=== PATIENT | male | born 1980 | race Caucasian/White ===

== ENCOUNTER 2016-12-14 11:06 | Emergency (ER) | payer BC ==
[2016-12-14 11:22] VITALS: TEMP 97.5
--- NOTE | 2016-12-14 12:30 | RAD ---
PROCEDURE: Lumbar Spine 3 Views Clinical History: low back pain on left, sciatica Indication: Same as above Comparison: None . Technique: 3.0 views of the lumbar spine were done. Findings: There is no loss of vertebral body height. There is no evidence of spondylolisthesis in the lumbosacral spine. Moderate size anterolateral osteophyte formation is seen in the evaluated lower thoracic spine and at L1 vertebral body level. There is reduction in the intervertebral disc space heights at T11/T12 and T12/L1 levels. These findings are suggestive of underlying degenerative changes in the evaluated lower thoracic and the lumbar spine There is no significant scoliotic curvature of the lumbar spine. The bone mineralization is normal for patient's age. The thoracolumbar and the lumbosacral junction are intact. The visualized portions of the bilateral sacroiliac joints are unremarkable. The paravertebral soft tissues are radiographically unremarkable. The posterior elements are normal. There is no visualization of any radiopaque foreign bodies in the soft tissues. Impression: Moderate size anterolateral osteophyte formation is seen in the evaluated lower thoracic spine and at L1 vertebral body level. There is reduction in the intervertebral disc space heights at T11/T12 and T12/L1 levels. These findings are suggestive of underlying degenerative changes in the evaluated lower thoracic and the lumbar spine Location of Interpretation: Teleradiology Electronically signed by: Tj Evans MD 12/14/2016 12:28 PM CDT
--- NOTE | 2016-12-14 12:30 | ED.PDOC ---
History of Present Illness - General Chief Complaint: Back Pain or Injury Stated Complaint: back pain Time Seen by Provider: 12/14/16 11:07 Source: patient Exam Limitations: no limitations - History of Present Illness Initial Comments: the patient is a 36-year-old male presenting to the emergency room secondary to left low back pain with some radiation of the pain down the posterior aspect of his leg. No numbness. No weakness. The pain is primarily localized to the left of the spine adjacent to L4-S1. There is no obvious visible trauma. There is tenderness to palpation in that area. Pelvis is stable. Range of motion of the hip knee and ankle on the left are within normal limits. The patient apparently slipped on a wet surface at [facility] 2 days ago. The pain has progressively gotten a little worse. 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 Severity: moderate Improving Factors: nothing Worsening Factors: other - sitting Associated Symptoms: denies symptoms Allergies/Adverse Reactions: Allergies Codeine Allergy (Verified 12/14/16 11:58) Home Medications: Ambulatory Orders Cyclobenzaprine HCl [Flexeril] 5 mg PO TID PRN #30 tab 12/14/16 predniSONE [Prednisone] 20 mg PO DAILY #5 tab 12/14/16 Review of Systems - Review of Systems Constitutional: States: no symptoms reported EENTM: States: no symptoms reported Respiratory: States: no symptoms reported Cardiology: States: no symptoms reported Gastrointestinal/Abdominal: States: no symptoms reported Genitourinary: States: no symptoms reported Musculoskeletal: States: see HPI Skin: States: no symptoms reported Neurological: States: see HPI Endocrine: States: no symptoms reported All other Systems: No Change from Baseline Past Medical History (General) - Patient Medical History Hx Asthma: No Hx of COPD: No Hx Congestive Heart Failure: No Hx Hypertension: Yes Hx Gastroesophageal Reflux: Yes Surgical History: tonsillectomy Family Medical History - Family History Father Family History: Unknown Physical Exam - Physical Exam General Appearance: Alert, Comfortable, No apparent distress Eye Exam: bilateral normal Ears, Nose, Throat: hearing grossly normal Neck: full range of motion, supple Respiratory: no respiratory distress, no accessory muscle use Cardiovascular/Chest: normal peripheral pulses, no edema Peripheral Pulses: radial,right: 2+, radial,left: 2+, dorsalis pedis,right: 2+, dorsalis pedis,left: 2+ Gastrointestinal/Abdominal: other - obese Rectal Exam: deferred Back Exam: no vertebral tenderness, other - see history of present illness Extremity: normal range of motion, non-tender, normal inspection, no pedal edema , no calf tenderness, normal capillary refill Neurologic: technical aid II-XII nml as tested, no motor/sensory deficits, alert, normal mood/affect, oriented x 3 Skin Exam: normal color Comments: Vital Signs - 24 hr 12/14/16 12/14/16 11:14 12:10 Temperature 97.5 F L Pulse Rate [ 76 76 Left Brachial] Respiratory 20 20 Rate Blood Pressure 147/92 147/92 [left brachial] O2 Sat by Pulse 97 96 Oximetry Progress - Progress Progress: 12/14/16 12:30 the patient is a 36-year-old male presenting to the emergency room secondary to left low back pain with mild sciatica since a fall 2 days ago. I see no evidence of significant subluxation or fracture on the x-ray of the lumbar spine. The patient will be placed on 5 days of oral prednisone and will also be placed on Flexeril as a muscle relaxer. He can take Aleve twice daily for the next 3 or 4 days with food. A heat pad to the area may also help. He can also see a chiropractor tomorrow to see if they can help provide some relief. Topical icy hot or Biofreeze may also help. ER warnings were given. Departure - Departure Clinical Impression: Low back pain with sciatica Qualifiers: Back pain laterality: left Sciatica laterality: sciatica of left side Qualified Code(s): M54.42 - Lumbago with sciatica, left side Disposition: Discharge to Home or Self Care Condition: Fair Departure Forms: ED Discharge - Pt. Copy, Patient Portal Self Enrollment Diet: regular diet Activity: increase activity as tolerated Prescriptions: Cyclobenzaprine HCl [Flexeril] 5 mg PO TID PRN #30 tab PRN Reason: Muscle Spasms predniSONE [Prednisone] 20 mg PO DAILY #5 tab Home Medications: Ambulatory Orders Cyclobenzaprine HCl [Flexeril] 5 mg PO TID PRN #30 tab 12/14/16 predniSONE [Prednisone] 20 mg PO DAILY #5 tab 12/14/16 Additional Instructions: the patient is a 36-year-old male presenting to the emergency room secondary to left low back pain with mild sciatica since a fall 2 days ago. I see no evidence of significant subluxation or fracture on the x-ray of the lumbar spine. The patient will be placed on 5 days of oral prednisone and will also be placed on Flexeril as a muscle relaxer. He can take Aleve twice daily for the next 3 or 4 days with food. A heat pad to the area may also help. He can also see a chiropractor tomorrow to see if they can help provide some relief. Topical icy hot or Biofreeze may also help. ER warnings were given.
[2016-12-14] MEDS ORDERED: KETOROLAC TROMETHAMINE INJ 30 MG/ML VIAL IM ONE (12:32)
[2016-12-14 13:09] VITALS: BP 127/78; O2SAT 97
== END 2016-12-14 13:07 | disposition home or self-care (01) ==
LOC: ER 11:06
DX: M54.42 Lumbago with sciatica, left side (principal); I10 Essential (primary) hypertension; K21.9 Gastro-esophageal reflux disease without esophagitis; Z88.6 Allergy status to analgesic agent
CPT/HCPCS: 72100; J1885

== ENCOUNTER → 2017-09-21 | Outpatient (CLI) | payer BC ==
--- NOTE | 2017-09-21 15:29 | RAD ---
Left hand 3 views INDICATION: Hand pain IMPRESSION: No fracture or focal destructive process. No evidence of active erosion. There are several small cysts in the third and fourth metacarpal heads which are common in this location. No acute osseous abnormality. Electronically signed by: Gopal Alejandre MD 09/21/2017 3:28 PM [facility]
--- NOTE | 2017-09-21 15:33 | RAD ---
Right hand 3 views INDICATION: Hand pain IMPRESSION: No fracture dislocation or focal destructive process. Mild ulna minus variance at the wrist. Multifocal mild cystic change in the metacarpal heads with evidence of active erosion. Electronically signed by: Gopal Alejandre MD 09/21/2017 3:32 PM [employer]
== END ==
LOC: RAD 08:21
PROVIDERS: ATTEND Orthopaedic Surgery
DX: M79.641 Pain in right hand (principal); M79.642 Pain in left hand

== ENCOUNTER → 2017-10-08 | Outpatient (CLI) | payer BC | LOC: LAB.O 09:02 | PROVIDERS: ATTEND Orthopaedic Surgery | DX: Z01.818 Encounter for other preprocedural examination (principal) ==

== ENCOUNTER 2017-10-14 06:05 | Day surgery (SDC) | payer BC ==
[~2017-10-14 06:05] MED LIST: LACTATED RINGERS 1,000 ML ONE; SODIUM CHL 0.9% 100ML MINI-BAG 100 ML IVPB ONE; ceFAZolin SODIUM 1 GM VIAL ONE
[2017-10-14] MEDS ORDERED: PROPOFOL 200 MG/20 ML VIAL IV ONE (06:06)
[2017-10-14] MEDS ORDERED: LIDOCAINE 1% 10 ML VIAL INJ ONE ×2 (06:06→06:29)
[2017-10-14] MEDS ORDERED: BUPIVACAINE 0.25% INJ 30 ML VIAL INJ ONE (06:29)
[2017-10-14] MEDS ORDERED: LIDOCAINE 1% 50 ML VIAL INJ ONE (06:30)
[2017-10-14] MEDS ORDERED: MIDAZOLAM INJ 2 MG/2 ML VIAL ONE (06:58)
[2017-10-14] MEDS ORDERED: fentaNYL CITRATE INJ 50 MCG/ML AMP ONE (06:58)
[2017-10-14] MEDS: VANCOMYCIN HCL INJ 1,000 MG VIAL IVPB ONE ×2 (07:31→07:38)
[2017-10-14] MEDS: ceFAZolin SODIUM 1 GM VIAL ONE ×2 (07:31→07:38)
[2017-10-14] MEDS ORDERED: LACTATED RINGERS 1,000 ML IVS ONE (07:45)
--- NOTE | 2017-10-14 08:43 | OP ---
DATE OF PROCEDURE: 10/14/17 PREOPERATIVE DIAGNOSIS: 1. Right carpal tunnel syndrome. POSTOPERATIVE DIAGNOSIS: 1. Right carpal tunnel syndrome. PROCEDURE: 1. Right carpal tunnel release. SURGEON: Dmitriy Alcantar MD. PERINATAL NURSE: Ziyad Joy CST, SA-C. ANESTHESIA: Local with sedation. COMPLICATIONS: None. FINDINGS: Very Thickened transverse carpal ligament. INDICATION: Mr. Bertrand has a long history of pain with associated numbness in the wrist and digits. He has failed conservative measures and EMG indicated the presence of carpal tunnel syndrome. Because of his severe symptoms and the failure of conservative measures, the patient has requested operative intervention. After discussing the risks, benefits and alternatives to that, the patient has given informed consent for carpal tunnel release. PROCEDURE: The patient was brought to the Operating Room and placed in the supine position. Sedation was administered and local anesthetic was injected into the operative area under sterile conditions. After the injection of anesthetic, the arm was sterilely prepped and draped. A longitudinal incision was made directly overlying the transverse carpal ligament and blunt dissection was carried down to the ligament. The transverse carpal ligament was sharply transected along its length and a [place] elevator was used to ensure complete release of the ligament. Once release had been confirmed, the wound was thoroughly irrigated and the wound was closed with Nylon suture. A sterile dressing was placed and the patient was taken to the Day Surgery Unit. POSTOPERATIVE INSTRUCTIONS: The patient has been encouraged to do range of motion of the digits and will followup with us tomorrow in the clinic. #[id number] [facility]
[2017-10-14 10:58] VITALS: TEMP 98.3
[2017-10-14 10:59] VITALS: BP 137/80; O2SAT 99
== END 2017-10-14 08:45 | disposition home or self-care (01) ==
LOC: AMB 06:05
PROVIDERS: ATTEND Orthopaedic Surgery
DX: G56.01 Carpal tunnel syndrome, right upper limb (principal); I10 Essential (primary) hypertension; E66.01 Morbid (severe) obesity due to excess calories; Z87.891 Personal history of nicotine dependence; G47.30 Sleep apnea, unspecified; Z88.8 Allergy status to other drugs, medicaments and biological substances
CPT/HCPCS: 01810; 64721; 87070; J0690; J2250; J3010; J3370; J3490; J7050; J7120

== ENCOUNTER 2018-04-09 06:00 | Day surgery (SDC) | payer BC ==
--- NOTE | 2018-04-08 09:15 | HP ---
CHIEF COMPLAINT: Right hand pain and numbness. HISTORY OF PRESENT ILLNESS: Avel is a 36-year-old male with a history of pain and numbness in the right hand. He says predominantly the radial three digits, but occasionally does get it in the fourth and fifth digit. He has had no trauma related to this and has had an EMG indicating carpal tunnel syndrome. He denies any radiation of pain, denies any neurologic symptoms. PAST SURGICAL HISTORY: 1. Carpal tunnel release on the left. MEDICATIONS: None. ALLERGIES: NO KNOWN DRUG ALLERGIES. CODE STATUS: Unknown. IMMUNIZATIONS: Up to date. FAMILY HISTORY: None pertinent to today's complaint. SOCIAL HISTORY: The patient does not drink, smoke or use any illicit drugs. REVIEW OF SYSTEMS: Negative except as indicated in the History of Present Illness. PHYSICAL EXAMINATION: VITAL SIGNS: Blood pressure 128/87. Pulse 77. Height 6'. Weight 300. MENTAL STATUS: The patient is awake, alert, and is able to give a good history and participate in the physical. The patient is oriented to person, place and time. SKIN: Normal tone and turgor. MUSCULOSKELETAL: He has a positive Tinel's, positive carpal compression test on the right. He has no significant thenar atrophy on the right. He has full range of motion in the digits and the wrist. There is no deformity. He has full abduction strength. He has positive Tinel's over the elbow. ASSESSMENT: 1. Carpal tunnel syndrome. PLAN: The plan at this point is for carpal tunnel release. We have discussed the risks, benefits, and alternatives to that and the patient has given informed consent. #[id number] [facility]
[2018-04-09] MEDS ORDERED: BUPIVACAINE 0.25% INJ 30 ML VIAL INJ ONE (06:26)
[2018-04-09] MEDS ORDERED: LIDOCAINE 1% 10 ML VIAL INJ ONE ×2 (06:26→07:00)
[2018-04-09] MEDS ORDERED: MIDAZOLAM INJ 2 MG/2 ML VIAL ONE (06:58)
[2018-04-09] MEDS ORDERED: fentaNYL CITRATE INJ 50 MCG/ML AMP ONE (06:59)
[2018-04-09] MEDS ORDERED: PROPOFOL 200 MG/20 ML VIAL IV ONE (07:00)
[2018-04-09 07:03] VITALS: TEMP 96.9; O2SAT 98
[2018-04-09] MEDS: VANCOMYCIN HCL INJ 1,000 MG VIAL IVPB ONE ×2 (07:27→07:31)
[2018-04-09] MEDS: ceFAZolin SODIUM 1 GM VIAL ONE ×2 (07:27→07:31)
[2018-04-09] MEDS ORDERED: HYDROcodone 5MG/APAP 325MG 1 EA TAB ONE (07:55)
[2018-04-09 08:12] VITALS: BP 114/63
--- NOTE | 2018-04-21 23:17 | OP ---
DATE OF PROCEDURE: PREOPERATIVE DIAGNOSIS: 1. Carpal tunnel syndrome. POSTOPERATIVE DIAGNOSIS: 1. Carpal tunnel syndrome. PROCEDURE: 1. Carpal tunnel release. SURGEON: Dmitriy Alcantar M.D. AUTOMATION TESTER: Ziyad Joy CST, SA-C. ANESTHESIA: Local with sedation. COMPLICATIONS: None. FINDINGS: Thickening of the transverse carpal ligament and narrowing of the median nerve across the carpal tunnel. INDICATION FOR PROCEDURE: Casimiro has a history of having numbness in the digits on both sides. Casimiro had contralateral carpal tunnel release with success. He has requested operative intervention after failure of conservative measures. After discussing the risks, benefits, and alternatives to that, he has given informed consent for that. DESCRIPTION OF PROCEDURE: The patient was brought to the Operating Room and placed in supine position. Sedation was administered and local anesthetic was injected into the operative area. The arm was sterilely prepped and draped. Following prepping and draping, longitudinal incision measuring approximately 3 cm was made directly overlying the transverse carpal ligament. Blunt dissection was used to identify the transverse carpal ligament, which was sharply incised in a longitudinal fashion. [place] elevator was passed both proximally and distally to ensure complete release of the transverse carpal ligament. Once complete release had been confirmed, the wound was very thoroughly irrigated and closed with Nylon suture. Sterile dressing was placed. A splint was placed and the patient was then taken to the Day Surgery Unit. POSTOPERATIVE INSTRUCTIONS: He will be doing range of motion of the digits and he will followup with us in 2 days. #[id number] [facility]
== END 2018-04-09 08:45 | disposition home or self-care (01) ==
LOC: AMB 06:00
PROVIDERS: ATTEND Orthopaedic Surgery
DX: G56.01 Carpal tunnel syndrome, right upper limb (principal); I10 Essential (primary) hypertension; E11.9 Type 2 diabetes mellitus without complications; K21.9 Gastro-esophageal reflux disease without esophagitis; E66.9 Obesity, unspecified; Z87.891 Personal history of nicotine dependence; Z88.5 Allergy status to narcotic agent; Z79.84 Long term (current) use of oral hypoglycemic drugs; Z79.899 Other long term (current) drug therapy
CPT/HCPCS: 01810; 36416; 64721; 82948; 87070; J0690; J2250; J3010; J3370; J3490; J7050; J7120

== ENCOUNTER 2018-04-19 10:51 | Emergency (ER) | payer BC ==
[2018-04-19 11:29] VITALS: TEMP 98.6; O2SAT 96
--- NOTE | 2018-04-19 11:35 | ED.PDOC ---
History of Present Illness - General Chief Complaint: Wound Recheck Stated Complaint: drainage operative wound with dehiscence Time Seen by Provider: 04/19/18 11:35 Source: patient Exam Limitations: no limitations - History of Present Illness Initial Comments: Casimiro Bertrand 37 y/o male came to er for suture removal and had Right hand carpal tunnel surgery 09 April 2018 then after suture removal done noted drainage onthe wound and dehiscence.Wound culture taken on drainage.No fever/ chills Timing/Duration: just prior to arrival Severity: mild Location: hands - right Improving Factors: nothing Worsening Factors: nothing Associated Symptoms: other - see hpi Allergies/Adverse Reactions: Allergies Codeine Allergy (Verified 12/14/16 11:58) Home Medications: Ambulatory Orders Cetirizine HCl [ZyrTEC] 10 mg PO DAILY 04/09/18 Esomeprazole Magnesium [Nexium] 20 mg PO DAILY 04/09/18 Lisinopril [Lisinopril] 20 mg PO BEDTIME 04/09/18 Metformin HCl [Metformin HCl] 500 mg PO BID 04/09/18 Multiple Vitamins W/ Minerals [Mens Daily Formula/Lycope] 1 cap PO DAILY Paroxetine HCl [Paroxetine HCl] 20 mg PO DAILY 04/09/18 Zolpidem Tartrate [Zolpidem Tartrate ER] 12.5 mg PO JESU-OTH-DAY 04/09/18 Zolpidem Tartrate [Zolpidem Tartrate] 10 mg PO JESU-OTH-DAY 04/09/18 RX: Clindamycin HCl 300 mg PO BID 10 Days #20 cap 04/19/18 Review of Systems - Review of Systems Constitutional: States: no symptoms reported EENTM: States: no symptoms reported Respiratory: States: no symptoms reported Cardiology: States: no symptoms reported Gastrointestinal/Abdominal: States: no symptoms reported Genitourinary: States: no symptoms reported Skin: States: see HPI Past Medical History (General) - Patient Medical History Hx Stroke: No Hx Asthma: No Hx of COPD: No Hx Cardiac Disorders: No Hx Congestive Heart Failure: No Hx Hypertension: Yes Hx Diabetes: Yes - FSBS 177 Hx Gastroesophageal Reflux: Yes Hx MRSA: No Surgical History: other - carpal tunnel surgery - Vaccination History Hx Tetanus, Diphtheria Vaccination: No Hx Influenza Vaccination: No Hx Pneumococcal Vaccination: No Immunizations Up to Date: No - Social History Hx Tobacco Use: No Hx Chewing Tobacco Use: No Hx Alcohol Use: No Hx Substance Use: No Hx Substance Use Treatment: No Hx Depression: No Feels Threatened In Home Enviroment: No Feels Threatened In a Relationship: No Hx Physical Abuse: No Hx Emotional Abuse: No Hx Suspected Abuse: No - Female History Patient is a Female of Child Bearing Age (10 -59 yrs old): No Patient : No Family Medical History - Family History Father Family History: Unknown Hx Family Diabetes: Yes Physical Exam - Physical Exam General Appearance: Alert, Comfortable, No apparent distress Eyes, Ears, Nose, Throat Exam: normal ENT inspection Neck: non-tender, supple Cardiovascular/Chest: normal peripheral pulses, regular rate, rhythm, no murmur Respiratory: lungs clear, normal breath sounds Gastrointestinal/Abdominal: non tender, soft Back Exam: normal inspection Extremity: no pedal edema, no calf tenderness Neurologic: no motor/sensory deficits, alert, oriented x 3 Skin Exam: warm/dry, normal color Skin Problem Location: other - right hand Skin Character: other - drainage and dehiscence of post op wound Lymphatic: no adenopathy Progress - Progress Progress: 04/19/18 11:56 Vital Signs - 8 hr 04/19/18 10:54 Temperature 98.6 F Pulse Rate [ 75 Apical] Respiratory 18 Rate Blood Pressure 137/82 [left armq] O2 Sat by Pulse 96 Oximetry Wound culture taken then cleanse area with betadine applied benzoin then steri strip closure done - EKG/XRAY/CT CT Ordered: No CT Interpretation Call Back: No Departure - Departure Clinical Impression: Status post carpal tunnel release Post op infection Qualifiers: Encounter type: initial encounter Qualified Code(s): T81.4XXA - Infection following a procedure, initial encounter Dehiscence of closure of skin Qualifiers: Encounter type: initial encounter Qualified Code(s): T81.31XA - Disruption of external operation (surgical) wound, not elsewhere classified, initial encounter Time of Disposition: 11:59 Disposition: Discharge to Home or Self Care Departure Forms: ED Discharge - Pt. Copy, Patient Portal Self Enrollment Instructions: DI for Wound Infection, DI for Wound Dehiscence Prescriptions: RX: Clindamycin HCl 300 mg PO BID 10 Days #20 cap Home Medications: Ambulatory Orders Cetirizine HCl [ZyrTEC] 10 mg PO DAILY 04/09/18 Esomeprazole Magnesium [Nexium] 20 mg PO DAILY 04/09/18 Lisinopril [Lisinopril] 20 mg PO BEDTIME 04/09/18 Metformin HCl [Metformin HCl] 500 mg PO BID 04/09/18 Multiple Vitamins W/ Minerals [Mens Daily Formula/Lycope] 1 cap PO DAILY Paroxetine HCl [Paroxetine HCl] 20 mg PO DAILY 04/09/18 Zolpidem Tartrate [Zolpidem Tartrate ER] 12.5 mg PO JESU-OTH-DAY 04/09/18 Zolpidem Tartrate [Zolpidem Tartrate] 10 mg PO JESU-OTH-DAY 04/09/18 RX: Clindamycin HCl 300 mg PO BID 10 Days #20 cap 04/19/18 Additional Instructions: call up Dr. Reagan office in am 2017
[2018-04-19 12:13] VITALS: BP 122/72
== END 2018-04-19 12:13 | disposition home or self-care (01) ==
LOC: ER 10:51
DX: T81.31XA Disruption of external operation (surgical) wound, not elsewhere classified, initial encounter (principal); T81.4XXA Infection following a procedure, initial encounter; L08.9 Local infection of the skin and subcutaneous tissue, unspecified; K21.9 Gastro-esophageal reflux disease without esophagitis; E11.9 Type 2 diabetes mellitus without complications; I10 Essential (primary) hypertension; Z79.84 Long term (current) use of oral hypoglycemic drugs; Z79.899 Other long term (current) drug therapy; Y84.8 Other medical procedures as the cause of abnormal reaction of the patient, or of later complication, without mention of misadventure at the time of the procedure

== ENCOUNTER 2019-08-16 15:21 | Emergency (ER) | payer BC, OTHER ==
[2019-08-16 15:48] VITALS: BP 147/96; TEMP 97; O2SAT 97
--- NOTE | 2019-08-16 15:50 | ED.PDOC ---
History of Present Illness - General Chief Complaint: Upper Extremity Injury Stated Complaint: right wrist pain Time Seen by Provider: 08/16/19 15:39 Source: patient Exam Limitations: no limitations - History of Present Illness Initial Comments: 38 M +pmh DM presents from work to ED c/o right wrist/forearm pain. Pt informs he was working on heavy objects and when moderately straining he felt a pain in his right lower forearm above the wrist and now has discomfort with extension of his arm described as a burning sensation. He endorses associated tingling in his 4-5th fingers but denies weakness/numbness. No h/o similar sx's. He is otherwise healthy with no other signs, symptoms, or complaints. Allergies/Adverse Reactions: Allergies Codeine Allergy (Verified 12/14/16 11:58) Home Medications: Ambulatory Orders Cetirizine HCl [ZyrTEC] 10 mg PO DAILY 04/09/18 Esomeprazole Magnesium [Nexium] 20 mg PO DAILY 04/09/18 Lisinopril 20 mg PO BEDTIME 04/09/18 Metformin HCl 500 mg PO BID 04/09/18 Multiple Vitamins W/ Minerals [Mens Daily Formula/Lycope] 1 cap PO DAILY 04/09/18 Paroxetine HCl 20 mg PO DAILY 04/09/18 Zolpidem Tartrate 10 mg PO JESU-OTH-DAY 04/09/18 Zolpidem Tartrate [Zolpidem Tartrate ER] 12.5 mg PO JESU-OTH-DAY 04/09/18 Clindamycin HCl 300 mg PO BID 10 Days #20 cap 04/19/18 Review of Systems - Review of Systems Musculoskeletal: States: muscle pain. Denies: back pain, joint pain, muscle stiffness Skin: Denies: change in color, rash Neurological: States: tingling. Denies: numbness Past Medical History (General) - Patient Medical History Hx Stroke: No Hx Asthma: No Hx of COPD: No Hx Cardiac Disorders: No Hx Congestive Heart Failure: No Hx Hypertension: Yes Hx Diabetes: Yes Hx Gastroesophageal Reflux: Yes Hx MRSA: No Surgical History: tonsillectomy - Vaccination History Hx Tetanus, Diphtheria Vaccination: No Hx Influenza Vaccination: Yes Hx Pneumococcal Vaccination: No - Social History Hx Tobacco Use: Yes Hx Chewing Tobacco Use: No Hx Alcohol Use: No Hx Substance Use: No Hx Substance Use Treatment: No Hx Depression: No Hx Physical Abuse: No Hx Emotional Abuse: No Hx Suspected Abuse: No - Female History Patient : No Family Medical History - Family History Father Family History: Unknown Hx Family Diabetes: Yes Physical Exam - Physical Exam General Appearance: Alert, Comfortable, No apparent distress Eyes, Ears, Nose, Throat Exam: other - PERRLA Cardiovascular/Respiratory: regular rate, rhythm, normal breath sounds, no respiratory distress Elbow/Forearm Exam: no evidence of injury - no external evidence of trauma, normal ROM, soft tissue tenderness - without ecchymosis, no deformity Wrist Exam: normal inspection, non-tender, no evidence of injury, normal ROM Hand Exam: normal inspection, non-tender, no evidence of injury, normal ROM - negative tinel sign, negative phalens test, strength/motor/sensation completely intact, compartments soft, no ecchymosis, no abrasions/lacerations Departure - Departure Clinical Impression: Strain of forearm, right Time of Disposition: 15:49 Disposition: Discharge to Home or Self Care Condition: Excellent Departure Forms: ED Discharge - Pt. Copy, Patient Portal Self Enrollment Instructions: DI for Forearm Muscle Strain, DI for Arm Pain Diet: resume usual diet Referrals: Henry Quach MD [Primary Care Provider] - 1-2 Weeks Home Medications: Ambulatory Orders Cetirizine HCl [ZyrTEC] 10 mg PO DAILY 04/09/18 Esomeprazole Magnesium [Nexium] 20 mg PO DAILY 04/09/18 Lisinopril 20 mg PO BEDTIME 04/09/18 Metformin HCl 500 mg PO BID 04/09/18 Multiple Vitamins W/ Minerals [Mens Daily Formula/Lycope] 1 cap PO DAILY 04/09/18 Paroxetine HCl 20 mg PO DAILY 04/09/18 Zolpidem Tartrate 10 mg PO JESU-OTH-DAY 04/09/18 Zolpidem Tartrate [Zolpidem Tartrate ER] 12.5 mg PO JESU-OTH-DAY 04/09/18 Clindamycin HCl 300 mg PO BID 10 Days #20 cap 04/19/18
== END 2019-08-16 16:17 | disposition home or self-care (01) ==
LOC: ER 15:21
DX: S56.911A Strain of unspecified muscles, fascia and tendons at forearm level, right arm, initial encounter (principal); E11.9 Type 2 diabetes mellitus without complications; K21.9 Gastro-esophageal reflux disease without esophagitis; I10 Essential (primary) hypertension; X50.9XXA Other and unspecified overexertion or strenuous movements or postures, initial encounter; Y99.0 Civilian activity done for income or pay; Y92.69 Other specified industrial and construction area as the place of occurrence of the external cause; Z88.5 Allergy status to narcotic agent; Z79.899 Other long term (current) drug therapy; Z79.84 Long term (current) use of oral hypoglycemic drugs; Z87.891 Personal history of nicotine dependence

== ENCOUNTER 2019-09-21 19:09 | Emergency (ER) | payer OTHER, BC ==
[2019-09-21] MEDS ORDERED: MECLIZINE HCL 12.5 MG TAB PO ONE (19:31)
[2019-09-21 19:35] VITALS: TEMP 97.8
--- NOTE | 2019-09-21 19:35 | ED.PDOC ---
History of Present Illness - General Time Seen by Provider: 09/21/19 19:29 Additional Information: Patient is a 38-year-old male who presents to the ED with chief complaint of dizziness. Patient indicates his dizziness began 2 weeks ago and has been constant, not getting any worse but not improving. Patient indicates he has never had similar symptoms before. He has a mild frontal headache and complains of sinus and nasal congestion. Patient denies difficulty walking. He further denies chest pain, shortness of breath, abdominal pain, nausea, vomiting, fever. Patient has diabetes but is otherwise healthy. - History of Present Illness Allergies/Adverse Reactions: Allergies Codeine Allergy (Verified 12/14/16 11:58) Home Medications: Ambulatory Orders Lisinopril 30 mg PO BEDTIME 04/09/18 Metformin HCl 1,000 mg PO BID 04/09/18 Atorvastatin Calcium [Lipitor] 20 mg PO BEDTIME 08/16/19 Venlafaxine HCl [Effexor Xr] 75 mg PO BID 08/16/19 Meclizine HCl [Antivert] 25 mg PO Q6H PRN #40 tab 09/21/19 Review of Systems - Review of Systems Constitutional: States: no symptoms reported. Denies: chills, fever EENTM: States: see HPI Respiratory: States: no symptoms reported. Denies: cough, short of breath Cardiology: States: no symptoms reported. Denies: chest pain, edema, palpitations, syncope Gastrointestinal/Abdominal: States: no symptoms reported. Denies: abdominal pain, diarrhea, nausea, vomiting Genitourinary: States: no symptoms reported. Denies: dysuria Musculoskeletal: States: no symptoms reported. Denies: muscle pain Skin: States: no symptoms reported. Denies: rash Neurological: States: see HPI. Denies: anxiety, paresthesia, weakness Endocrine: States: no symptoms reported All other Systems: Reviewed and Negative Past Medical History (General) - Patient Medical History Hx Stroke: No Hx Asthma: No Hx of COPD: No Hx Cardiac Disorders: No Hx Congestive Heart Failure: No Hx Hypertension: Yes Hx Diabetes: Yes Hx Gastroesophageal Reflux: Yes Hx MRSA: No - Vaccination History Hx Tetanus, Diphtheria Vaccination: No Hx Influenza Vaccination: Yes Hx Pneumococcal Vaccination: No - Social History Hx Tobacco Use: Yes Hx Chewing Tobacco Use: No Hx Alcohol Use: No Hx Substance Use: No Hx Substance Use Treatment: No Hx Depression: No Hx Physical Abuse: No Hx Emotional Abuse: No Hx Suspected Abuse: No - Female History Patient : No Family Medical History - Family History Father Family History: Unknown Hx Family Diabetes: Yes Physical Exam - Physical Exam General Appearance: Alert, Comfortable, No apparent distress, Well Developed, Well Nourished ENT Exam: normal ENT inspection, pharynx normal, nasal congestion Neck: non-tender, full range of motion, supple, normal inspection Respiratory: chest non-tender, lungs clear, normal breath sounds, no respiratory distress, no accessory muscle use Cardiovascular/Chest: normal peripheral pulses, regular rate, rhythm, no edema, no gallop, no JVD, no murmur Gastrointestinal/Abdominal: normal bowel sounds, non tender, soft Back Exam: normal inspection, no CVA tenderness 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 09/21/19 20:22 Patient seen and reassessed. Patient indicates he is feeling slightly better at this time following Antivert. Patient's labs are unremarkable with the exception of glucose of 181, but patient has diabetes. Patient's exam is unremarkable, he has a normal gait, and his CT head is negative. Clinically I suspect viral source of patient's dizziness given his sinus and nasal congestion. Will DC with Antivert and patient to rest and follow-up with his PCP within the week. He is to return to ED if symptoms worsen. Vital signs stable, patient is NAD and looks clinically well and I believe is safe for discharge with outpatient follow-up. Follow-up instructions, discharge instructions and return to ED precautions discussed with patient. Patient voices understanding and willingness to comply with instructions. All laboratory and radiographic results have been discussed with the patient, and all questions answered. Patient is happy with plan. - Results/Orders Results/Orders: Laboratory Results - last 24 hr 09/21/19 09/21/19 09/21/19 19:47 19:47 19:47 WBC 10.1 RBC 5.32 Hgb 17.1 Hct 48.5 MCV 91.0 MCH 32.2 H MCHC 35.4 RDW 13.1 Plt Count 250 MPV 9.5 Absolute Neuts (auto) 6.20 Absolute Lymphs (auto) 3.00 Absolute Monos (auto) 0.70 Absolute Eos (auto) 0.10 Absolute Basos (auto) 0.10 Neutrophils % 61.6 Lymphocytes % 29.6 Monocytes % 7.3 Eosinophils % 1.0 Basophils % 0.5 Sodium 138 Potassium 3.7 Chloride 103 Carbon Dioxide 26 Anion Gap 12.7 BUN 21 H Creatinine 1.04 BUN/Creatinine Ratio 20.2 H Random Glucose 181 H Serum Osmolality 283.2 Calcium 10.2 Troponin I < 0.02 Departure - Departure Clinical Impression: Dizziness Time of Disposition: 20:25 Disposition: Discharge to Home or Self Care Condition: Good Instructions: Dizziness, Nonvertigo, (DC) Referrals: Henry Quach MD [Primary Care Provider] - 1-5 Days Prescriptions: Meclizine HCl [Antivert] 25 mg PO Q6H PRN #40 tab PRN Reason: Dizziness Home Medications: Ambulatory Orders Lisinopril 30 mg PO BEDTIME 04/09/18 Metformin HCl 1,000 mg PO BID 04/09/18 Atorvastatin Calcium [Lipitor] 20 mg PO BEDTIME 08/16/19 Venlafaxine HCl [Effexor Xr] 75 mg PO BID 08/16/19 Meclizine HCl [Antivert] 25 mg PO Q6H PRN #40 tab 09/21/19
--- NOTE | 2019-09-21 20:10 | CT ---
EXAM DESCRIPTION: Head CLINICAL HISTORY: 38 years Male dizziness COMPARISON: None Technique: Contiguous axial images of the brain were obtained without the administration of intravenous contrast.This exam was performed according to our departmental dose-optimization program which includes use of Automated Exposure Control, adjustment of the mA and/or kV according to patient size and/or use of iterative reconstruction technique. DLP: 967 mGy*cm FINDINGS: Brain: No acute intracranial hemorrhage. No extra-axial collection. No mass effect or herniation. Ventricles: Within normal limits in size. Globes and orbits: No acute abnormality. Bones: No acute osseous finding Paranasal sinuses: Paranasal sinuses are clear. Mastoid air cells: Well pneumatized. Soft tissues: Within normal limits IMPRESSION: No acute intracranial abnormality. If clinical concern for acute ischemia, consider MRI brain without contrast for further evaluation. Electronically signed by: Javier Swift DO 09/21/2019 8:09 PM [facility]
[2019-09-21 20:31] VITALS: BP 122/79; O2SAT 96
== END 2019-09-21 20:35 | disposition home or self-care (01) ==
LOC: ER 19:09
DX: R42 Dizziness and giddiness (principal); I10 Essential (primary) hypertension; E11.9 Type 2 diabetes mellitus without complications; K21.9 Gastro-esophageal reflux disease without esophagitis; Z87.891 Personal history of nicotine dependence; Z79.84 Long term (current) use of oral hypoglycemic drugs; Z79.899 Other long term (current) drug therapy; Z88.5 Allergy status to narcotic agent

== ENCOUNTER 2020-04-08 15:55 | Emergency (ER) | payer SELFPAY ==
--- NOTE | 2020-04-08 16:02 | ED.PDOC ---
History of Present Illness - General Time Seen by Provider: 04/08/20 16:00 - History of Present Illness Initial Comments: 39 yo M with DM2 and HTN comes in with c/c of 2 weeks of abdominal pain and elevated glucose > 300. no prior abdominal surgeries. + n no emesis, no fever, no black bm, does have pain with bm and notices blood dripping in toilet at time. no chest pain or shortness of breath. Traveled to [place] 6 months ago. no recent travel. no dysuria. no back pain. no headache no dizziness. no recent antibiotics. no change in medication. Pain diffuse, cramping, did come and go, now seems constant. not worse with eating, not improved withbm. Review of Systems - Review of Systems Constitutional: States: malaise. Denies: diaphoresis, fever, weakness EENTM: Denies: blurred vision, ear pain, ear discharge, nose pain, throat pain, mouth pain Respiratory: Denies: cough, orthopnea, short of breath, stridor Cardiology: Denies: chest pain, edema, palpitations, syncope Gastrointestinal/Abdominal: States: abdominal pain, diarrhea, nausea. Denies: constipation, vomiting Genitourinary: Denies: discharge, dysuria, frequency, hematuria Musculoskeletal: Denies: back pain, joint pain, joint swelling, muscle pain Skin: Denies: change in color, change in hair/nails, dryness, lesions, lumps, rash Neurological: Denies: headache, numbness, paresthesia, seizure, tingling, tremors, weakness Endocrine: Denies: unexplained weight gain, unexplained weight loss Hematologic/Lymphatic: Denies: anemia, blood clots, easy bleeding, easy bruising Past Medical History (General) - Patient Medical History Hx Seizures: No Hx Stroke: No Hx Dementia: No Hx Asthma: No Hx of COPD: No Hx Cardiac Disorders: No Hx Congestive Heart Failure: No Hx Pacemaker: No Hx Hypertension: Yes Hx Thyroid Disease: No Hx Diabetes: Yes Hx Gastroesophageal Reflux: Yes Hx Renal Disease: No Hx Cancer: No Hx of HIV: No Hx Hepatitis C: No Hx MRSA: No - Vaccination History Hx Tetanus, Diphtheria Vaccination: No Hx Influenza Vaccination: Yes Hx Pneumococcal Vaccination: No - Social History Hx Tobacco Use: Yes Hx Chewing Tobacco Use: No Hx Alcohol Use: No Hx Substance Use: No Hx Substance Use Treatment: No Hx Depression: No Hx Physical Abuse: No Hx Emotional Abuse: No Hx Suspected Abuse: No - Female History Patient : No Family Medical History - Family History Father Family History: Unknown Hx Family Diabetes: Yes Physical Exam - Physical Exam General Appearance: Alert, Comfortable, No apparent distress, Well Developed, Well Groomed, Well Hydrated, Well Nourished, Other - stable gait Eyes, Ears, Nose, Throat Exam: PERRL/EOMI, normal ENT inspection Neck: non-tender, full range of motion, supple, normal inspection Respiratory: chest non-tender, lungs clear, normal breath sounds, no respiratory distress, no accessory muscle use Cardiovascular/Chest: normal peripheral pulses, regular rate, rhythm, no edema, no gallop, no JVD, no murmur Peripheral Pulses: 2+ Gastrointestinal/Abdominal: normal bowel sounds, non tender, soft, no organomegaly, no pulsatile mass Rectal Exam: normal exam, normal rectal tone Back Exam: normal inspection, no CVA tenderness, no vertebral tenderness Extremity: normal range of motion, non-tender, normal inspection, no pedal edema, no calf tenderness, normal capillary refill 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 Will give IVF and bentyl for pain. Blood work overall unremarkable. CT abd/pelvis shows: No acute intra-abdominal abnormality is identified. There is an enlarged fatty liver. There is splenomegaly. 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 I discussed these findings with patient. Repeat glucose 171. Bentyl did not help with pain. tried Toradol and GI cocktail with some improvement. The data reviewed when caring for this patient included: nurse notes,. The history and assessments from nurses notes were reviewed and considered, and the patient's home medication list was also reviewed and considered. My assessment and the results of testing completed here in the ED were discussed with the patient. All questions were answered, and they express understanding of my assessment and the plan. They have been instructed to return if their symptoms worsen, and have been asked to follow up with their primary care physician to recheck today's presenting complaint. Strict return precautions given. I have reviewed medication, benefits, alternatives and side effects. Patient decided to proceed with medication. patient was discharged in stable condition. Yudelka Pineda DO #[id number] 04/08/20 19:59 Departure - Departure Clinical Impression: Anal fissure Abdominal pain Qualifiers: Abdominal location: generalized Qualified Code(s): R10.84 - Generalized abdominal pain Time of Disposition: 18:54 Disposition: Discharge to Home or Self Care Instructions: Anal Fissure, Acute Abdomen (Belly Pain), Adult (DC) Referrals: Henry Quach MD [Primary Care Provider] - 1-2 Days Prescriptions: Hydrocort 2.5% Crm (Anusol Hc) [Anusol-HC Cream] 1 applic IA BID PRN #1 tube PRN Reason: rectal pain Dicyclomine HCl [Bentyl] 20 mg PO TID PRN #30 tab PRN Reason: Abdominal Cramping Alum & Mag Hydrox-Simethicone [Mylanta] 30 ml PO BID PRN #300 ud PRN Reason: abdominal pain Home Medications: Ambulatory Orders Lisinopril 30 mg PO BEDTIME 04/09/18 Metformin HCl 1,000 mg PO BID 04/09/18 Alum & Mag Hydrox-Simethicone [Mylanta] 30 ml PO BID PRN #300 ud 04/08/20 Dicyclomine HCl [Bentyl] 20 mg PO TID PRN #30 tab 04/08/20 Glimepiride 2 mg PO DAILY 04/08/20 Hydrocort 2.5% Crm (Anusol Hc) [Anusol-HC Cream] 1 applic IA BID PRN #1 tube 04/08/20
[2020-04-08 16:18] VITALS: TEMP 97
[2020-04-08] MEDS ORDERED: SODIUM CHLORIDE 0.9% 1000ML 1,000 ML IVS PRN (16:42)
--- NOTE | 2020-04-08 17:17 | CT ---
EXAM DESCRIPTION: Abdomen/Pelvis w/Contrast CLINICAL HISTORY: 39 years Male abd pain COMPARISON: None. TECHNIQUE: Contiguous axial images obtained through the abdomen and pelvis following IV contrast. Reformatted images obtained. This exam was performed according to our department optimization program which includes automated exposure control, adjustment of the mA and/or kv according to patient size and/or use of iterative reconstruction technique. FINDINGS: The lung bases are clear. The liver is enlarged measuring 23 cm. There is fatty replacement in the liver. The spleen is enlarged measuring 13.6 cm in length. The pancreas appears unremarkable. No adrenal masses. There is a small left renal cyst. No hydronephrosis or ureteral calculi. The gallbladder is visualized. No aneurysmal dilatation of the aorta. No bowel obstruction. The appendix appears unremarkable. No significant free pelvic fluid. The SI joints appear fused. IMPRESSION: No acute intra-abdominal abnormality is identified. There is an enlarged fatty liver. There is splenomegaly. 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 Electronically signed by: Ricky Tang MD 04/08/2020 5:16 PM CDT
[2020-04-08] MEDS ORDERED: DICYCLOMINE HCL 20 MG TAB PO ONE (17:27)
[2020-04-08] MEDS ORDERED: KETOROLAC TROMETHAMINE INJ 30 MG/ML VIAL IV ONE (18:28)
[2020-04-08] MEDS ORDERED: ALUM & MAG HYDROX-SIMETHICONE 30 ML, LIDOCAINE VISCOUS 2% 15 ML PO ONE ×2 (19:02)
[2020-04-08 19:58] VITALS: O2SAT 98
[2020-04-08 20:02] VITALS: BP 120/83
== END 2020-04-08 20:03 | disposition home or self-care (01) ==
LOC: ER 15:55
DX: R10.84 Generalized abdominal pain (principal); K60.2 Anal fissure, unspecified; R19.7 Diarrhea, unspecified; R11.0 Nausea; R16.1 Splenomegaly, not elsewhere classified; K76.0 Fatty (change of) liver, not elsewhere classified; E11.9 Type 2 diabetes mellitus without complications; I10 Essential (primary) hypertension; K21.9 Gastro-esophageal reflux disease without esophagitis; Z79.899 Other long term (current) drug therapy; Z79.84 Long term (current) use of oral hypoglycemic drugs
CPT/HCPCS: 36415; 74177; 80053; 81001; 82009; 82270; 82948; 83690; 83735; 83880; 84443; 84484; 85025; 85610; 85730; 93005; J1885; J7030

== ENCOUNTER 2020-07-05 05:23 | Day surgery (SDC) | payer BC ==
[2020-07-05] MEDS ORDERED: LACTATED RINGERS 1,000 ML ONE (06:39)
[2020-07-05] MEDS ORDERED: LIDOCAINE 1% 10 ML VIAL INJ ONE (07:00)
[2020-07-05] MEDS ORDERED: PROPOFOL 200 MG/20 ML VIAL IV ONE (07:00)
[2020-07-05] MEDS ORDERED: LACTATED RINGERS 1,000 ML IVS ONE (08:48)
[2020-07-05] MEDS ORDERED: KETAMINE HCL 100 MG/ML VIAL ONE (09:31)
[2020-07-05] MEDS ORDERED: MIDAZOLAM INJ 2 MG/2 ML VIAL ONE (09:32)
--- NOTE | 2020-07-05 10:07 | OP ---
DATE OF PROCEDURE: 07/05/20 PREOPERATIVE DIAGNOSIS: 1. Blood in stool. POSTOPERATIVE DIAGNOSIS: 1. Normal colon. PROCEDURE: 1. Colonoscopy. SURGEON: Candelario Perdue MD ANESTHESIA: General. PROCEDURE: Digital rectal exam revealed no evidence of fissure. He did have some hemorrhoids, but not particularly large, non-thrombosed, non-bleeding. The scope was inserted without difficulty and passed to the cecum with mild to moderate difficulty. Upon withdrawal, no polyps were seen, no masses, no evidence of bleeding, no significant diverticulosis. There was no sign of the cause of the bleeding. On retroflexion, they were not particularly large hemorrhoids. No stigmata of recent bleed. The colon was aspirated and the scope was completed. The patient tolerated the procedure and was taken to Recovery to be discharged. I will see him in followup to talk about diet changes and what to look for. It is possibly hemorrhoids that caused the bleeding. #[id number] cc: Henry Quach MD [facility]
[2020-07-05 10:48] VITALS: TEMP 97.3
[2020-07-05 10:50] VITALS: BP 131/88; O2SAT 99
== END 2020-07-05 10:45 | disposition home or self-care (01) ==
LOC: AMB 05:23
PROVIDERS: ATTEND Surgery
DX: K92.1 Melena (principal); I10 Essential (primary) hypertension; E11.9 Type 2 diabetes mellitus without complications; F41.9 Anxiety disorder, unspecified; F32.9 Major depressive disorder, single episode, unspecified; E78.00 Pure hypercholesterolemia, unspecified; K21.9 Gastro-esophageal reflux disease without esophagitis; Z79.84 Long term (current) use of oral hypoglycemic drugs; Z79.899 Other long term (current) drug therapy
CPT/HCPCS: 00811; 45378; 82948; J2250; J3490; J7120